=== PATIENT | male | born 1930 ===

== ENCOUNTER 2017-07-06 21:32 | Inpatient (IN) | payer MEDICARE, MEDICAID ==
[2017-07-06 22:29] LABS: BASO # 0.1 K/uL (0.0-0.2); EOS # 0.2 K/uL (0.0-0.7); EOS % 2.1 % (0.0-4.0); HEMOGLOBIN 14.3 g/dL (12.0-18.0); LYMPH # 1.5 K/uL (1.0-4.3); LYMPH % 18.1 % (20.0-40.0); MEAN CELL VOLUME 90.8 fl (80.0-94.0); MEAN CORPUSCULAR HEMOGLOBIN 29.9 pg (27.0-31.0); MEAN CORPUSCULAR HGB CONC 32.9 g/dL (33.0-37.0); MEAN PLATELET VOLUME 8.8 fl (7.2-11.7); MONO # 1.2 K/uL (0.0-0.8); MONO % 14.8 % (0.0-10.0); NEUT # 5.3 K/uL (1.8-7.0); NRBC % 0.1 % (0.0-0.0); RBC 4.8 Mil/uL (4.40-5.90); RED CELL DISTRIBUTION WIDTH 13.5 % (11.5-14.5); WHITE BLOOD COUNT 8.3 K/uL (4.8-10.8)
[2017-07-06 22:36] LABS: PARTIAL THROMBOPLASTIN TIME 29.5 Seconds (25.6-37.1); PROTHROMBIN TIME 11.5 Seconds (9.8-13.1)
[2017-07-06 22:40] LABS: ALBUMIN 3.4 g/dL (3.5-5.0); ALT/SGPT 67 U/L (21-72); AST/SGOT 47 U/L (17-59); BLOOD UREA NITROGEN 18 mg/dl (9-20); CALCIUM 8.3 mg/dL (8.4-10.2); GFR AFRICAN-AMERICAN > 60; GFR NON-AFRICAN AMERICAN > 60; LIPASE 50 U/L (23-300); MAGNESIUM 1.9 MG/DL (1.6-2.3)
[2017-07-06 22:54] LABS: VENOUS BLOOD GAS BASE EXCESS 0.3 mmol/L (0.0-2.0); VENOUS BLOOD GAS PCO2 48 mmHg (40-60); VENOUS BLOOD GAS PO2 54 mm/Hg (30-55); VENOUS BLOOD PH 7.35 (7.32-7.43)
[2017-07-06 22:54] LABS: ALB/GLOB RATIO 1.1 (1.0-2.1)
[2017-07-06] MEDS ORDERED: levoFLOXacin 750 mg in D5W 150 ML BAG IVPB STA (22:54)
[2017-07-06 23:05] LABS: URINE BILIRUBIN NEGATIVE (NEGATIVE); URINE BLOOD SMALL (NEGATIVE); URINE CLARITY CLEAR (Clear); URINE COLOR YELLOW (YELLOW); URINE GLUCOSE (UA) 50 mg/dL (Normal); URINE LEUKOCYTE ESTERASE NEG Leu/uL (Negative); URINE NITRATE NEGATIVE (NEGATIVE); URINE PROTEIN 30 mg/dL (NEGATIVE)
[2017-07-06] MEDS ORDERED: Piperacillin/Tazobact 3.375 GM in Sodium Chloride 0.9% 100 ML IVPB STA (23:25)
[2017-07-06] MEDS ORDERED: levoFLOXacin 750 mg in D5W 750 MG/150 ML BAG IVPB STA (23:28)
--- NOTE | 2017-07-06 23:43 | ED PDOC ---
HPI: General Adult Time Seen by Provider: 07/06/17 21:52 Chief Complaint (Nursing): Flu-like Symptoms Chief Complaint (Provider): Flu-Like Symptoms History Per: Other (correction) History/Exam Limitations: clinical condition (dementia) Additional Complaint(s): 87 year old brought in by EMS presents to [facility] for fever and cough and has a past medical history of HTN, hypercholesterolemia, DM (type II) , asthma, PNA, cerebrovascular accident, Parkinson's, dementia, and seizures. Patient is unable to provide history due to dementia. PCP: Jordan Kruse Past Medical History Reviewed: Historical Data, Nursing Documentation, Vital Signs Vital Signs: Last Vital Signs Temp 99.4 F 07/07/17 16:22 Pulse 85 07/07/17 16:22 Resp 20 07/07/17 16:22 BP 132/68 07/07/17 16:22 Pulse Ox 96 07/07/17 16:22 - Medical History PMH: Asthma, CAD, Dementia, Diabetes, HTN, Hypercholesterolemia, Osteoporosis, Parkinson's Disease, Pneumonia, Seizures Denies: Chronic Kidney Disease - Surgical History Surgical History: No Surg Hx - Family History Family History: States: Unknown Family Hx - Living Arrangements Living Arrangements: [facility] - Social History Current smoker - smoking cessation education provided: No Ex-Smoker (has not smoked in the last 12 months): No Alcohol: None Drugs: Denies - Home Medications Home Medications: Ambulatory Orders Medication Instructions Recorded Acetaminophen [Tylenol 325mg tab] 650 mg PO Q4 PRN 03/20/17 Atorvastatin [Lipitor] 80 mg PO HS 03/20/17 Bisacodyl [Dulcolax] 10 mg PO DAILY PRN 03/20/17 Calcium Carbonate/Vitamin D3 1 tab PO BID 03/20/17 [Os-Davy 500-Vit D3 200 Caplet] Carbidopa/Levodopa [Sinemet Cr 25 - 100 mg PO Q8 03/20/17 25-100 Tablet] Donepezil [Aricept] 5 mg PO DAILY 03/20/17 Famotidine [Pepcid] 20 mg PO BID 03/20/17 Insulin Detemir [Levemir] 10 units SC HS 03/20/17 Insulin Detemir [Levemir] 40 units SC AC 03/20/17 Lisinopril [Zestril] 10 mg PO DAILY 03/20/17 Magnesium Hydroxide [Milk Of 30 ml PO PRN PRN 03/20/17 Magnesia] Potassium Chloride [Klor-Con 10] 10 meq PO DAILY 03/20/17 Repaglinide [Prandin] 1 tab PO DAILY 03/20/17 amLODIPine [Norvasc] 10 mg PO DAILY 03/20/17 levETIRAcetam [Keppra] 500 mg PO Q12 03/20/17 Albuterol/Ipratropium [Duoneb 3 3 ml INH RQ4 neb 03/29/17 mg/0.5 mg (3 ml) UD] Furosemide [Lasix] 40 mg PO DAILY #30 udc 03/29/17 Albuterol/Ipratropium [Duoneb 3 See Protocol INH Q4 07/07/17 mg/0.5 mg (3 ml) UD] Guaifenesin [Mucinex] 600 mg PO BID 07/07/17 Insulin Aspart [Novolog FLEXPEN] 3 unit SC ACL 07/07/17 Insulin Aspart, Recombinant 5 units SQ ACBD 07/07/17 [Novolog] Promethazine [Phenergan Syrup] 10 ml PO Q4 PRN 07/07/17 - Allergies Allergies/Adverse Reactions: Allergies Allergy/AdvReac Type Severity Reaction Status Date / Time codeine Allergy RASH Verified 07/06/17 21:46 fish oil Allergy RASH Verified 07/06/17 21:46 shellfish derived Allergy RASH Verified 07/06/17 21:46 seafood Allergy RASH Uncoded 03/20/17 21:14 Review of Systems Review Of Systems: ROS cannot be obtained secondary to pt's inabilty to answer questions. (patient has dementia) Constitutional: Positive for: Fever Respiratory: Positive for: Cough Physical Exam - Reviewed Nursing Documentation Reviewed: Yes Vital Signs Reviewed: Yes - Physical Exam Appears: Positive for: In Acute Distress (febrile) Skin: Positive for: Warm, Dry Eye Exam: Positive for: EOMI, PERRL ENT: Positive for: Other (tacky mucus membranes) Neck: Positive for: Painless ROM, Supple Cardiovascular/Chest: Positive for: Regular Rate, Rhythm. Negative for: Murmur Respiratory: Positive for: Decreased Breath Sounds (bases bilaterally). Negative for: Wheezing Gastrointestinal/Abdominal: Positive for: Soft. Negative for: Tenderness Back: Positive for: Normal Inspection. Negative for: Vertebral Tenderness Extremity: Positive for: Other (cogwheel rigidity). Negative for: Deformity Lymphatic: Negative for: Adenopathy Neurologic/Psych: Positive for: Alert. Negative for: Oriented, Motor/Sensory Deficits - Laboratory Results Result Diagrams: 07/07/17 08:03 07/07/17 08:03 - ECG O2 Sat by Pulse Oximetry: 95 (RA) Pulse Ox Interpretation: Normal - Radiology X-Ray Interpretation: Infiltrates Medical Decision Making Medical Decision Makin Initial impression: febrile illness DDx: including but not limited to PNA, influenza, dehydration, UTI Initial plan: * T&S * VBG * EKG * Labs * Lipase * Magnesium * Phosphorus * Trop I * PTT/PT * CXR * Levaquin 750mg in 150mL IVPB * Oseltamivir 75mg PO * Acetaminophen 975mg PO * Vancomycin 1000mg IVPB * Piperacillin 3.375gm IVPB * BCx * UCx * Influenza A B * UA * Re-eval LLL infiltrate on CXR DW Dr Kruse for hospitalization Scribe Attestation: Documented by Wanda Lomas acting as a scribe for Sherry Painter MD. Scribe Attestation: All medical record entries made by the Scribe were at my direction and personally dictated by me. I have reviewed the chart and agree that the record accurately reflects my personal performance of the history, physical exam, medical decision making, and the department course for this patient. I have also personally directed, reviewed, and agree with the discharge instructions and disposition. Disposition - Clinical Impression Clinical Impression: Pneumonia - Disposition Disposition Time: 23:20 Condition: FAIR - Pt Status Changed To: Hospital Disposition Of: Inpatient - Admit Certification Admit to Inpatient:: After my assessment, the patient will require hospitalization for at least two midnights. This is because of the severity of symptoms shown, intensity of services needed, and/or the medical risk in this patient being treated as an outpatient. - POA Present On Arrival: None
[2017-07-07] MEDS ORDERED: Magnesium Hydroxide Susp 30 ml UD PO PRN (02:39)
[2017-07-07] MEDS ORDERED: Promethazine 6.25 MG/5 ML CUP PO PRN (02:39)
[2017-07-07] MEDS ORDERED: Albuterol-Ipratrop 3 mg / 0.5 (3 ml) UD INH PRN (02:39)
[2017-07-07] MEDS: Piperacillin/Tazobact 3.375 GM in Sodium Chloride 0.9% 100 ML IVPB SCH ×4 (05:16→23:13)
[2017-07-07] MEDS: Albuterol-Ipratrop 3 mg / 0.5 (3 ml) UD INH SCH ×6 (06:16→23:37)
[2017-07-07] MEDS ORDERED: Patient's Own Med (Insulin Detemir [Levemir] 40 units) SC SCH (07:30)
[2017-07-07 08:24] LABS: HEMOGLOBIN 13.9 g/dL (12.0-18.0); MEAN CELL VOLUME 91.4 fl (80.0-94.0); MEAN CORPUSCULAR HEMOGLOBIN 30.3 pg (27.0-31.0); MEAN CORPUSCULAR HGB CONC 33.1 g/dL (33.0-37.0); RBC 4.6 Mil/uL (4.40-5.90); RED CELL DISTRIBUTION WIDTH 13.6 % (11.5-14.5); WHITE BLOOD COUNT 7.9 K/uL (4.8-10.8)
[2017-07-07] MEDS: Promethazine 12.5 mg/10 ml Syrup PO PRN (08:34)
[2017-07-07] MEDS: Carbidopa/Levodopa 25/100 CR PO SCH ×2 (08:35→16:55)
[2017-07-07] MEDS: guaiFENesin 600 mg ER Tab PO SCH ×2 (08:36→16:55)
[2017-07-07 08:37] LABS: ALT/SGPT 71 U/L (21-72); AST/SGOT 59 U/L (17-59); BLOOD UREA NITROGEN 15 mg/dl (9-20); CALCIUM 7.7 mg/dL (8.4-10.2); GFR AFRICAN-AMERICAN > 60; GFR NON-AFRICAN AMERICAN > 60; HDL CHOLESTEROL 19 MG/DL (30-70)
[2017-07-07 08:49] LABS: LDL CHOLESTEROL < 30 mg/dL (0-129)
[2017-07-07] MEDS: Insulin Lispro (humaLOG) 100 Units/ml Inj SC SCH ×6 (08:50→21:59)
[2017-07-07] MEDS: Insulin Detemir 100 Units/ml Inj SC SCH ×2 (08:51→21:58)
[2017-07-07 08:53] LABS: T4 7.82 ug/dl (5.5-11.0)
[2017-07-07] MEDS ORDERED: Potassium Chloride 10 mEq ER Tab PO SCH (09:00)
[2017-07-07] MEDS ORDERED: levoFLOXacin 750 mg in D5W 150 ML BAG IVPB SCH (09:00)
--- NOTE | 2017-07-07 09:36 | RAD ---
HISTORY: fever cough weakness COMPARISON: Chest radiograph dated 03/28/2017. FINDINGS: LUNGS: New left lower lobe infiltrate. Resolution of right upper lobe airspace disease. PLEURA: No significant pleural effusion identified, no pneumothorax apparent. CARDIOVASCULAR: Atherosclerotic aortic calcifications. Cardiomediastinal silhouette unchanged. OSSEOUS STRUCTURES: Unchanged. VISUALIZED UPPER ABDOMEN: Normal. OTHER FINDINGS: None. IMPRESSION: Left lower lobe infiltrate.
[2017-07-07] MEDS: Calcium-Vit D 500 mg-200 Units Tab UD PO SCH ×2 (10:52→17:52)
--- NOTE | 2017-07-07 13:04 | CARD ---
APPROVED REPORT EKG Measurement Heart [id number] MI [id number] <Conclusion> Normal sinus rhythm Left bundle branch block Abnormal ECG
--- NOTE | 2017-07-07 13:30 | CP.PCM.HP ---
History of Present Illness - History of Present Illness History of Present Illness: CC Fever cough Patient is [place] resident having Fever and Cough , patient was seen ER [facility] CXR LLL Infiltrate, [place] was AD. Patient with Dementia , confused, poor historian Present on Admission - Present on Admission Any Indicators Present on Admission: No Past Patient History - Past Medical History & Family History Past Medical History?: Yes - Past Social History Smoking Status: Unknown If Ever Smoked - CARDIAC Hx Cardiac Disorders: Yes Hx Hypercholesterolemia: Yes Hx Hypertension: Yes Hx Peripheral Edema: Yes - PULMONARY Hx Respiratory Disorders: Yes Hx Asthma: Yes Hx Pneumonia: Yes - NEUROLOGICAL Hx Neurological Disorder: Yes HX Cerebrovascular Accident: Yes Hx Parkinson's Disease: Yes Hx Seizures: Yes - HEENT Hx HEENT Problems: Yes Hx Difficulty Chewing: Yes (dysphagia) - RENAL Hx Chronic Kidney Disease: No - ENDOCRINE/METABOLIC Hx Endocrine Disorders: Yes Hx Diabetes Mellitus Type 2: Yes - HEMATOLOGICAL/ONCOLOGICAL Hx Blood Disorders: No Hx AIDS: No Hx Human Immunodeficiency Virus (HIV): No - INTEGUMENTARY Hx Dermatological Problems: No - MUSCULOSKELETAL/RHEUMATOLOGICAL Hx Musculoskeletal Disorders: Yes Hx Falls: Yes Hx Unsteady Gait: Yes - GASTROINTESTINAL Hx Gastrointestinal Disorders: No - GENITOURINARY/GYNECOLOGICAL Hx Genitourinary Disorders: Yes Hx Incontinence: Yes - PSYCHIATRIC Hx Psychophysiologic Disorder: No Hx Substance Use: No - SURGICAL HISTORY Hx Surgeries: No - ANESTHESIA Hx Anesthesia: No Meds Home Medications: Home Medication List Medication Instructions Recorded Confirmed Type Azithromycin [Zithromax] 500 mg PO DAILY #3 tab 07/11/17 Rx Methylprednisolone [Medrol Dose 4 mg PO DAILY #21 mg 07/11/17 Rx Pack (21 tabs)] Allergies/Adverse Reactions: Allergies Allergy/AdvReac Type Severity Reaction Status Date / Time codeine Allergy RASH Verified 07/06/17 21:46 fish oil Allergy RASH Verified 07/06/17 21:46 shellfish derived Allergy RASH Verified 07/06/17 21:46 seafood Allergy RASH Uncoded 03/20/17 21:14 Physical Exam - Constitutional Appears: Chronically Ill - Head Exam Head Exam: NORMAL INSPECTION - Eye Exam Eye Exam: PERRL - ENT Exam ENT Exam: Normal Exam - Neck Exam Neck exam: Positive for: Normal Inspection - Respiratory Exam Respiratory Exam: Decreased Breath Sounds (at bases), Rhonchi (scattered) - Cardiovascular Exam Cardiovascular Exam: REGULAR RHYTHM - GI/Abdominal Exam GI & Abdominal Exam: Normal Bowel Sounds, Soft - Extremities Exam Extremities exam: Positive for: normal inspection - Back Exam Back exam: NORMAL INSPECTION - Neurological Exam Additional comments: confused, not following commands , generalized weakness, mild R side hemiparesia - Psychiatric Exam Additional comments: confused - Skin Skin Exam: Warm Results - Vital Signs Recent Vital Signs: Last Vital Signs Temp 98.3 F 07/07/17 08:19 Pulse 81 07/07/17 08:38 Resp 18 07/07/17 08:19 BP 136/61 07/07/17 08:38 Pulse Ox 96 07/07/17 08:19 - Labs Result Diagrams: 07/11/17 05:40 07/11/17 05:40 Labs: Laboratory Results - last 24 hr 07/06/17 07/06/17 07/06/17 22:14 22:20 22:20 WBC 8.3 RBC 4.80 Hgb 14.3 Hct 43.6 MCV 90.8 MCH 29.9 MCHC 32.9 L RDW 13.5 Plt Count 187 MPV 8.8 Neut % (Auto) 64.0 Lymph % (Auto) 18.1 L [place] % (Auto) 14.8 H Eos % (Auto) 2.1 Baso % (Auto) 1.0 Neut # 5.3 Lymph # 1.5 [place] # 1.2 H Eos # 0.2 Baso # 0.1 PT INR APTT pO2 VBG pH VBG pCO2 VBG HCO3 VBG Total CO2 VBG O2 Sat (Calc) VBG Base Excess VBG Potassium Glucose Lactate FiO2 Sodium 141 Potassium 4.1 Chloride 106 Carbon Dioxide 25 Anion Gap 14 BUN 18 Creatinine 0.9 Est GFR ( Amer) > 60 Est GFR (Non-Af Amer) > 60 POC Glucose (mg/dL) Random Glucose 183 H Calcium 8.3 L Phosphorus 2.0 L Magnesium 1.9 Total Bilirubin 0.7 AST 47 ALT 67 Alkaline Phosphatase 131 H D Troponin I 0.0220 Total Protein 6.3 Albumin 3.4 L Globulin 3.0 Albumin/Globulin Ratio 1.1 Triglycerides Cholesterol LDL Cholesterol Direct HDL Cholesterol Lipase 50 Thyroxine (T4) TSH 3rd Generation Venous Blood Potassium Urine Color Urine Clarity Urine pH Ur Specific [place] Urine Protein Urine Glucose (UA) Urine Ketones Urine Blood Urine Nitrate Urine Bilirubin Urine Urobilinogen Ur Leukocyte Esterase Urine RBC (Auto) Urine Microscopic WBC Influenza Typ A,B (EIA) Blood Type O POSITIVE Antibody Screen Negative BBK History Checked Patient has bt 07/06/17 07/06/17 07/06/17 22:20 22:40 22:58 WBC RBC Hgb Hct MCV MCH MCHC RDW Plt Count MPV Neut % (Auto) Lymph % (Auto) [place] % (Auto) Eos % (Auto) Baso % (Auto) Neut # Lymph # [place] # Eos # Baso # PT 11.5 INR 1.0 APTT 29.5 pO2 54 VBG pH 7.35 VBG pCO2 48 VBG HCO3 24.9 VBG Total CO2 28.0 VBG O2 Sat (Calc) 93.2 H VBG Base Excess 0.3 VBG Potassium 4.0 Glucose 173 H Lactate 1.8 FiO2 21.0 Sodium 137.0 Potassium Chloride 107.0 Carbon Dioxide Anion Gap BUN Creatinine Est GFR ( Amer) Est GFR (Non-Af Amer) POC Glucose (mg/dL) Random Glucose Calcium Phosphorus Magnesium Total Bilirubin AST ALT Alkaline Phosphatase Troponin I Total Protein Albumin Globulin Albumin/Globulin Ratio Triglycerides Cholesterol LDL Cholesterol Direct HDL Cholesterol Lipase Thyroxine (T4) TSH 3rd Generation Venous Blood Potassium 4.0 Urine Color Urine Clarity Urine pH Ur Specific [place] Urine Protein Urine Glucose (UA) Urine Ketones Urine Blood Urine Nitrate Urine Bilirubin Urine Urobilinogen Ur Leukocyte Esterase Urine RBC (Auto) Urine Microscopic WBC Influenza Typ A,B (EIA) Negative for flu a/b Blood Type Antibody Screen BBK History Checked 07/06/17 07/07/17 07/07/17 22:58 06:15 08:03 WBC 7.9 RBC 4.60 Hgb 13.9 Hct 42.1 MCV 91.4 MCH 30.3 MCHC 33.1 RDW 13.6 Plt Count 158 MPV Neut % (Auto) Lymph % (Auto) [place] % (Auto) Eos % (Auto) Baso % (Auto) Neut # Lymph # [place] # Eos # Baso # PT INR APTT pO2 VBG pH VBG pCO2 VBG HCO3 VBG Total CO2 VBG O2 Sat (Calc) VBG Base Excess VBG Potassium Glucose Lactate FiO2 Sodium Potassium Chloride Carbon Dioxide Anion Gap BUN Creatinine Est GFR ( Amer) Est GFR (Non-Af Amer) POC Glucose (mg/dL) 186 H Random Glucose Calcium Phosphorus Magnesium Total Bilirubin AST ALT Alkaline Phosphatase Troponin I Total Protein Albumin Globulin Albumin/Globulin Ratio Triglycerides Cholesterol LDL Cholesterol Direct HDL Cholesterol Lipase Thyroxine (T4) TSH 3rd Generation Venous Blood Potassium Urine Color Yellow Urine Clarity Clear Urine pH 5.0 Ur Specific [place] 1.023 Urine Protein 30 Urine Glucose (UA) 50 Urine Ketones Negative Urine Blood Small Urine Nitrate Negative Urine Bilirubin Negative Urine Urobilinogen 4.0 Ur Leukocyte Esterase Neg Urine RBC (Auto) 7 H Urine Microscopic WBC < 1 Influenza Typ A,B (EIA) Blood Type Antibody Screen BBK History Checked 07/07/17 07/07/17 08:03 11:27 WBC RBC Hgb Hct MCV MCH MCHC RDW Plt Count MPV Neut % (Auto) Lymph % (Auto) [place] % (Auto) Eos % (Auto) Baso % (Auto) Neut # Lymph # [place] # Eos # Baso # PT INR APTT pO2 VBG pH VBG pCO2 VBG HCO3 VBG Total CO2 VBG O2 Sat (Calc) VBG Base Excess VBG Potassium Glucose Lactate FiO2 Sodium 142 Potassium 4.1 Chloride 107 Carbon Dioxide 26 Anion Gap 13 BUN 15 Creatinine 0.9 Est GFR ( Amer) > 60 Est GFR (Non-Af Amer) > 60 POC Glucose (mg/dL) 244 H Random Glucose 207 H Calcium 7.7 L Phosphorus Magnesium Total Bilirubin 0.6 AST 59 D ALT 71 Alkaline Phosphatase 130 H Troponin I Total Protein 5.9 L Albumin 3.0 L Globulin 2.9 Albumin/Globulin Ratio 1.0 Triglycerides 62 D Cholesterol 66 LDL Cholesterol Direct < 30 HDL Cholesterol 19 L Lipase Thyroxine (T4) 7.82 TSH 3rd Generation 2.07 Venous Blood Potassium Urine Color Urine Clarity Urine pH Ur Specific [place] Urine Protein Urine Glucose (UA) Urine Ketones Urine Blood Urine Nitrate Urine Bilirubin Urine Urobilinogen Ur Leukocyte Esterase Urine RBC (Auto) Urine Microscopic WBC Influenza Typ A,B (EIA) Blood Type Antibody Screen BBK History Checked Assessment & Plan (1) HCAP (healthcare-associated pneumonia) Status: Acute (2) COPD exacerbation Status: Acute (3) Dementia Status: Acute (4) Parkinson disease Status: Acute (5) Seizure Status: Acute (6) History of CVA (cerebrovascular accident) Status: Acute (7) HTN (hypertension) Status: Acute - Assessment and Plan (Free Text) Plan: Zithromax , Zosyn , Vanco , DuoNeb and rest of treatment ,f/u Blood and Urine C-S - Date & Time Date: 07/07/17 Time: 13:20
[2017-07-07] MEDS ORDERED: Influenza Vaccine 18yr & older 0.5 ML/45 MCG SYR IM ONE (19:34)
[2017-07-07] MEDS: levETIRAcetam 100 mg/ml (5ml) Oral Syringe PO SCH (21:41)
[2017-07-07] MEDS ORDERED: levoFLOXacin 750 mg in D5W 750 MG/150 ML BAG IVPB SCH (23:00)
[2017-07-08] MEDS: Carbidopa/Levodopa 25/100 CR PO SCH ×3 (00:21→16:29)
[2017-07-08] MEDS: Promethazine 12.5 mg/10 ml Syrup PO PRN (00:22)
[2017-07-08] MEDS: Piperacillin/Tazobact 3.375 GM in Sodium Chloride 0.9% 100 ML IVPB SCH ×4 (03:14→21:54)
[2017-07-08] MEDS: Albuterol-Ipratrop 3 mg / 0.5 (3 ml) UD INH SCH ×6 (03:37→23:38)
[2017-07-08] MEDS: Insulin Detemir 100 Units/ml Inj SC SCH ×2 (06:58→21:47)
[2017-07-08] MEDS: Insulin Lispro (humaLOG) 100 Units/ml Inj SC SCH ×7 (06:59→21:48)
[2017-07-08] MEDS: Potassium Chloride 20 mEq/15 ml LIQ UD PO SCH (08:39)
[2017-07-08] MEDS: guaiFENesin 600 mg ER Tab PO SCH ×2 (08:39→16:31)
[2017-07-08] MEDS: levETIRAcetam 100 mg/ml (5ml) Oral Syringe PO SCH (08:40)
[2017-07-08] MEDS: Calcium-Vit D 500 mg-200 Units Tab UD PO SCH ×2 (08:43→16:29)
--- NOTE | 2017-07-08 12:10 | CP.PCM.PN ---
Subjective - Date & Time of Evaluation Date of Evaluation: 07/08/17 Time of Evaluation: 11:20 - Subjective Subjective: F/U Fever and Cough No AD , confused Objective - Vital Signs/Intake and Output Vital Signs (last 24 hours): Temp Pulse Resp BP Pulse Ox 100.5 F H 94 H 20 132/66 97 07/08/17 08:58 07/08/17 08:20 07/08/17 08:20 07/08/17 08:47 07/08/17 08:20 - Medications Medications: Current Medications Acetaminophen (Tylenol 325mg Tab) 650 mg PO Q4 PRN PRN Reason: Fever >100.4 F Last Admin: 07/08/17 08:58 Dose: 650 mg Albuterol/Ipratropium (Duoneb 3 Mg/0.5 Mg (3 Ml) Ud) 3 ml INH RQ4 [facility] Last Admin: 07/08/17 11:15 Dose: 3 ml Albuterol/Ipratropium (Duoneb 3 Mg/0.5 Mg (3 Ml) Ud) 3 ml INH Q4 PRN PRN Reason: Shortness of Breath Amlodipine Besylate (Norvasc) 10 mg PO DAILY [facility] Last Admin: 07/08/17 08:41 Dose: 10 mg Atorvastatin Calcium (Lipitor) 80 mg PO HS [facility] Last Admin: 07/07/17 21:42 Dose: 80 mg Bisacodyl (Dulcolax) 10 mg [place] DAILY PRN PRN Reason: Constipation Calcium/Vitamin D (Oyster Shell Calcium/Vitamin D 500 Mg-200 Iu) 1 tab PO BID [facility] Last Admin: 07/08/17 08:43 Dose: 1 tab Carbidopa/Levodopa (Sinemet Cr) 1 tab PO Q8 [facility] Last Admin: 07/08/17 08:49 Dose: 1 tab Donepezil HCl (Aricept) 5 mg PO DAILY [facility] Last Admin: 07/08/17 08:41 Dose: 5 mg Famotidine (Pepcid) 20 mg PO BID [facility] Last Admin: 07/08/17 08:46 Dose: 20 mg Furosemide (Lasix) 40 mg PO DAILY [facility] Last Admin: 07/08/17 08:47 Dose: 40 mg Guaifenesin (Mucinex La) 600 mg PO BID [facility] Last Admin: 07/08/17 08:39 Dose: 600 mg Vancomycin HCl 1 gm/ Sodium (Chloride) 250 mls @ 166.667 mls/hr IVPB Q12 TARYN PRN Reason: Protocol Last Admin: 07/08/17 08:37 Dose: 166.667 mls/hr Piperacillin Sod/Tazobactam (Sod 3.375 gm/ Sodium Chloride) 100 mls @ 100 mls/ hr IVPB Q6 TARYN PRN Reason: Protocol Last Admin: 07/08/17 09:21 Dose: 100 mls/hr Azithromycin 500 mg/ Sodium (Chloride) 250 mls @ 250 mls/hr IVPB DAILY [facility] PRN Reason: Protocol Stop: 07/13/17 23:59 Insulin Detemir (Levemir) 10 units SC HS [facility] Last Admin: 07/07/17 21:58 Dose: 10 u Insulin Detemir (Levemir) 40 units SC ACB [facility] Last Admin: 07/08/17 06:58 Dose: 40 units Insulin Human Lispro (Humalog) 5 units SC ACBD [facility] Last Admin: 07/08/17 06:59 Dose: 5 units Insulin Human Lispro (Humalog) 3 units SC ACL [facility] Last Admin: 07/08/17 11:59 Dose: 3 units Insulin Human Lispro (Humalog) 0 units SC ACHS [facility] PRN Reason: Protocol Last Admin: 07/08/17 12:00 Dose: 2 units Levetiracetam (Keppra) 500 mg PO BID [facility] Last Admin: 07/08/17 08:40 Dose: 500 mg Lisinopril (Zestril) 10 mg PO DAILY [facility] Last Admin: 07/08/17 08:46 Dose: 10 mg Magnesium Hydroxide (Milk Of Magnesia) 30 ml PO PRN PRN PRN Reason: Constipation Potassium Chloride (Potassium Chloride Oral Soln) 10 meq PO DAILY [facility] Last Admin: 07/08/17 08:39 Dose: 10 meq Promethazine HCl (Phenergan Syrup) 12.5 mg PO Q4 PRN PRN Reason: Cough Last Admin: 07/08/17 00:22 Dose: 12.5 mg - Labs Labs: 07/07/17 08:03 07/07/17 08:03 PT 11.5 Seconds (9.8-13.1) 07/06/17 22:20 INR 1.0 (0.9-1.2) 07/06/17 22:20 APTT 29.5 Seconds (25.6-37.1) 07/06/17 22:20 - Constitutional Appears: No Acute Distress, Chronically Ill - Head Exam Head Exam: NORMAL INSPECTION - Eye Exam Eye Exam: PERRL - ENT Exam ENT Exam: Normal Exam - Neck Exam Neck Exam: Normal Inspection - Respiratory Exam Respiratory Exam: Decreased Breath Sounds (at bases), Rhonchi (scattered at bases) - Cardiovascular Exam Cardiovascular Exam: REGULAR RHYTHM - GI/Abdominal Exam GI & Abdominal Exam: Soft, Normal Bowel Sounds - Back Exam Back Exam: NORMAL INSPECTION - Neurological Exam Additional comments: confused , generalized weakness, mild R side hemiparesia. - Psychiatric Exam Additional comments: confused - Skin Skin Exam: Warm Assessment and Plan (1) HCAP (healthcare-associated pneumonia) Status: Acute (2) COPD exacerbation Status: Acute (3) Dementia Status: Acute (4) History of CVA (cerebrovascular accident) Status: Acute (5) Parkinson disease Status: Acute (6) Seizure Status: Acute (7) DM (diabetes mellitus), type 2, uncontrolled Status: Acute (8) HTN (hypertension) Status: Acute - Assessment and Plan (Free Text) Plan: continue Zithromax , Vanco , Zosyn , DuoNeb and rest of treatment
[2017-07-08] MEDS: Azithromycin 500 MG in Sodium Chloride 0.9% 250 ML IVPB SCH (13:40)
[2017-07-08 16:03] VITALS: BMI 26.3
[2017-07-09] MEDS: Carbidopa/Levodopa 25/100 CR PO SCH ×3 (00:51→18:00)
[2017-07-09] MEDS: Piperacillin/Tazobact 3.375 GM in Sodium Chloride 0.9% 100 ML IVPB SCH ×4 (04:27→22:37)
[2017-07-09] MEDS: Albuterol-Ipratrop 3 mg / 0.5 (3 ml) UD INH SCH ×5 (04:55→19:27)
[2017-07-09] MEDS: Insulin Lispro (humaLOG) 100 Units/ml Inj SC SCH ×7 (06:48→21:54)
[2017-07-09] MEDS: Insulin Detemir 100 Units/ml Inj SC SCH ×2 (06:48→21:54)
[2017-07-09] MEDS: levETIRAcetam 100 mg/ml (5ml) Oral Syringe PO SCH ×2 (09:29→17:59)
[2017-07-09] MEDS: Calcium-Vit D 500 mg-200 Units Tab UD PO SCH ×2 (09:32→18:02)
[2017-07-09] MEDS: guaiFENesin 600 mg ER Tab PO SCH ×2 (09:32→18:00)
[2017-07-09] MEDS: Potassium Chloride 20 mEq/15 ml LIQ UD PO SCH (09:33)
[2017-07-09] MEDS: Azithromycin 500 MG in Sodium Chloride 0.9% 250 ML IVPB SCH (09:36)
[2017-07-09 10:47] LABS: BASO # 0.1 K/uL (0.0-0.2); BASO % 0.6 % (0.0-2.0); EOS # 0.5 K/uL (0.0-0.7); EOS % 5.2 % (0.0-4.0); HEMOGLOBIN 13.5 g/dL (12.0-18.0); LYMPH # 1.6 K/uL (1.0-4.3); LYMPH % 18.5 % (20.0-40.0); MEAN CELL VOLUME 89.6 fl (80.0-94.0); MEAN CORPUSCULAR HEMOGLOBIN 30.3 pg (27.0-31.0); MEAN CORPUSCULAR HGB CONC 33.8 g/dL (33.0-37.0); MEAN PLATELET VOLUME 9.5 fl (7.2-11.7); MONO # 1.2 K/uL (0.0-0.8); NEUT # 5.6 K/uL (1.8-7.0); NEUT % 62.7 % (50.0-75.0); NRBC % 0.1 % (0.0-0.0); RBC 4.44 Mil/uL (4.40-5.90); RED CELL DISTRIBUTION WIDTH 13.5 % (11.5-14.5); WHITE BLOOD COUNT 8.9 K/uL (4.8-10.8)
[2017-07-09 11:00] LABS: ALBUMIN 2.8 g/dL (3.5-5.0); ALT/SGPT 35 U/L (21-72); AST/SGOT 35 U/L (17-59); BLOOD UREA NITROGEN 7 mg/dl (9-20); CALCIUM 8.3 mg/dL (8.4-10.2); GFR AFRICAN-AMERICAN > 60; GFR NON-AFRICAN AMERICAN > 60
--- NOTE | 2017-07-09 11:56 | IP.NPCORE ---
Pneumonia Progress Notes - Oxygenation Assessment (REQUIRED) Documented 02: Yes O2 Saturation: 100 Oxygen Delivery Method: Nasal Cannula
[2017-07-09] MEDS ORDERED: Dextrose 50% SYRINGE Inj (50 ml) IV PRN (16:27)
[2017-07-09] MEDS ORDERED: Glucagon Recombinant 1 mg Inj IM PRN (16:27)
--- NOTE | 2017-07-09 17:56 | CP.PCM.PN ---
Subjective - Date & Time of Evaluation Date of Evaluation: 07/09/17 Time of Evaluation: 09:30 - Subjective Subjective: F/U HCAP Awake, confused. Objective - Vital Signs/Intake and Output Vital Signs (last 24 hours): Temp Pulse Resp BP Pulse Ox 97.5 F L 84 20 124/51 L 95 07/09/17 16:02 07/09/17 16:02 07/09/17 16:02 07/09/17 16:02 07/09/17 16:02 - Medications Medications: Current Medications Acetaminophen (Tylenol 325mg Tab) 650 mg PO Q4 PRN PRN Reason: Fever >100.4 F Last Admin: 07/08/17 08:58 Dose: 650 mg Albuterol/Ipratropium (Duoneb 3 Mg/0.5 Mg (3 Ml) Ud) 3 ml INH RQ4 [facility] Last Admin: 07/09/17 15:07 Dose: 3 ml Albuterol/Ipratropium (Duoneb 3 Mg/0.5 Mg (3 Ml) Ud) 3 ml INH Q4 PRN PRN Reason: Shortness of Breath Amlodipine Besylate (Norvasc) 10 mg PO DAILY [facility] Last Admin: 07/09/17 09:32 Dose: 10 mg Atorvastatin Calcium (Lipitor) 80 mg PO HS [facility] Last Admin: 07/08/17 21:46 Dose: 80 mg Bisacodyl (Dulcolax) 10 mg [place] DAILY PRN PRN Reason: Constipation Calcium/Vitamin D (Oyster Shell Calcium/Vitamin D 500 Mg-200 Iu) 1 tab PO BID [facility] Last Admin: 07/09/17 09:32 Dose: 1 tab Carbidopa/Levodopa (Sinemet Cr) 1 tab PO Q8 [facility] Last Admin: 07/09/17 09:33 Dose: 1 tab Dextrose (Dextrose 50% Inj) 0 ml IV STAT PRN; Protocol PRN Reason: Hypoglycemia Protocol Dextrose (Glutose 15) 0 gm PO ONCE PRN; Protocol PRN Reason: Hypoglycemia Protocol Donepezil HCl (Aricept) 5 mg PO DAILY [facility] Last Admin: 07/09/17 09:29 Dose: 5 mg Famotidine (Pepcid) 20 mg PO BID [facility] Last Admin: 07/09/17 09:32 Dose: 20 mg Furosemide (Lasix) 40 mg PO DAILY [facility] Last Admin: 07/09/17 09:29 Dose: 40 mg Glucagon (Glucagen Diagnostic Kit) 0 mg IM STAT PRN; Protocol PRN Reason: Hypoglycemia Protocol Guaifenesin (Mucinex La) 600 mg PO BID [facility] Last Admin: 07/09/17 09:32 Dose: 600 mg Vancomycin HCl 1 gm/ Sodium (Chloride) 250 mls @ 166.667 mls/hr IVPB Q12 [facility] PRN Reason: Protocol Last Admin: 07/09/17 09:38 Dose: 166.667 mls/hr Piperacillin Sod/Tazobactam (Sod 3.375 gm/ Sodium Chloride) 100 mls @ 100 mls/ hr IVPB Q6 [facility] PRN Reason: Protocol Last Admin: 07/09/17 09:36 Dose: 100 mls/hr Azithromycin 500 mg/ Sodium (Chloride) 250 mls @ 250 mls/hr IVPB DAILY [facility] PRN Reason: Protocol Stop: 07/13/17 23:59 Last Admin: 07/09/17 09:36 Dose: 250 mls/hr Insulin Detemir (Levemir) 10 units SC HS [facility] Last Admin: 07/08/17 21:47 Dose: 10 u Insulin Detemir (Levemir) 30 units SC DAILY [facility] Insulin Human Lispro (Humalog) 0 units SC ACHS [facility] PRN Reason: Protocol Last Admin: 07/09/17 13:00 Dose: Not Given Insulin Human Lispro (Humalog) 3 units SC AC [facility] Levetiracetam (Keppra) 500 mg PO BID [facility] Last Admin: 07/09/17 09:29 Dose: 500 mg Lisinopril (Zestril) 10 mg PO DAILY [facility] Last Admin: 07/09/17 09:33 Dose: 10 mg Magnesium Hydroxide (Milk Of Magnesia) 30 ml PO PRN PRN PRN Reason: Constipation Potassium Chloride (Potassium Chloride Oral Soln) 10 meq PO DAILY [facility] Last Admin: 07/09/17 09:33 Dose: 10 meq Promethazine HCl (Phenergan Syrup) 12.5 mg PO Q4 PRN PRN Reason: Cough Last Admin: 07/08/17 00:22 Dose: 12.5 mg - Labs Labs: 07/09/17 10:38 07/09/17 10:38 PT 11.5 Seconds (9.8-13.1) 07/06/17 22:20 INR 1.0 (0.9-1.2) 07/06/17 22:20 APTT 29.5 Seconds (25.6-37.1) 07/06/17 22:20 - Constitutional Appears: Chronically Ill - Head Exam Head Exam: NORMAL INSPECTION - Eye Exam Eye Exam: PERRL - ENT Exam ENT Exam: Normal Exam - Neck Exam Neck Exam: Normal Inspection - Respiratory Exam Respiratory Exam: Decreased Breath Sounds (at bases), Rhonchi (scattered) - Cardiovascular Exam Cardiovascular Exam: REGULAR RHYTHM - GI/Abdominal Exam GI & Abdominal Exam: Soft, Normal Bowel Sounds - Extremities Exam Extremities Exam: Normal Inspection - Back Exam Back Exam: NORMAL INSPECTION - Neurological Exam Neurological Exam: Awake Additional comments: Confused, not following commands, generalized weakness, mild R side hemiparesia. - Skin Skin Exam: Warm Assessment and Plan (1) HCAP (healthcare-associated pneumonia) Status: Acute (2) COPD exacerbation Status: Acute (3) Dementia Status: Acute (4) History of CVA (cerebrovascular accident) Status: Acute (5) Parkinson disease Status: Acute (6) Seizure Status: Acute (7) DM (diabetes mellitus), type 2, uncontrolled Status: Acute (8) HTN (hypertension) Status: Acute - Assessment and Plan (Free Text) Plan: Continue Zithromax, Zosyn, Vanco, Duoneb and rest of Tx.
[2017-07-10] MEDS: Albuterol-Ipratrop 3 mg / 0.5 (3 ml) UD INH SCH ×6 (00:17→19:21)
[2017-07-10] MEDS: Carbidopa/Levodopa 25/100 CR PO SCH ×3 (01:26→16:16)
[2017-07-10] MEDS: Piperacillin/Tazobact 3.375 GM in Sodium Chloride 0.9% 100 ML IVPB SCH ×4 (04:18→22:49)
[2017-07-10] MEDS: Insulin Lispro (humaLOG) 100 Units/ml Inj SC SCH ×7 (09:10→21:41)
[2017-07-10] MEDS: levETIRAcetam 100 mg/ml (5ml) Oral Syringe PO SCH ×2 (09:11→16:15)
[2017-07-10] MEDS: guaiFENesin 600 mg ER Tab PO SCH ×2 (09:12→16:15)
[2017-07-10] MEDS: Insulin Detemir 100 Units/ml Inj SC SCH ×3 (09:12→21:43)
[2017-07-10] MEDS: Calcium-Vit D 500 mg-200 Units Tab UD PO SCH ×2 (09:13→16:16)
[2017-07-10] MEDS: Potassium Chloride 20 mEq/15 ml LIQ UD PO SCH (09:13)
[2017-07-10] MEDS: Azithromycin 500 MG in Sodium Chloride 0.9% 250 ML IVPB SCH (09:18)
--- NOTE | 2017-07-10 10:32 | PQF GENQUE ---
This form is a permanent part of the medical record 07/10/17 Dr. Kruse, Note: CAP, HAP, and HCAP indicate where the pneumonia was acquired, not a specific type. Please specify the type or suspected type of pneumonia in the progress notes after workup. snf resident with dementia presents with fever and cough. CXR: LLL Infiltrate. WBC 8.3. Temp max 100.5. Tolerating diet. M. Pneumoniae pending. Diagnosed with HCAP and COPD exacerbation. Treated with triple IVAB, Nebulizer treatments. Clarification of your documentation is requested to better reflect the severity of illness and intensity of treatment of your patient. Indicators present [] Specify: [] [] Specify: [] [] Specify: [] [] Specify: [] Location in the medical record that reflects the above clinical findings: [] Treatment Provided: [] PHYSICIAN'S RESPONSE Please specify type of pneumonia in the progress notes: [] Aspiration pneumonia [] Bacterial (specify organism) [] Bronchopneumonia (specify organism) [] Interstitial pneumonia [] Organizing pneumonia/BOOP [] Pneumonia with influenza, [place] flu, or H1N1 flu [] RSV pneumonia [] Tuberculosis, pulmonary [] Viral pneumonia [] Other pneumonia (specify organism or type) [] Clinically unable to determine [] Unknown Based on your medical judgment of the clinical indicators outlined above please clarify the following: [] Practitioner response [] If unable to determine, please check the box, sign and date. Present On Admission (POA) Indicator: [] Present at the time of admission [] Not present at the time of admission [] Clinically Undetermined In responding to this query, please exercise your independent professional judgment. The fact that a question is asked does not imply that any particular answer is desired or expected. Thank you for your clarification on this documentation. If you have any questions please call:ext [phone] * Thank you, Kerri Gutierrez RN [facility]
[2017-07-10] MEDS ORDERED: methylPREDNISolone 40 MG in Sodium Chloride 0.9% 50 ML IVPB SCH (12:30)
--- NOTE | 2017-07-10 15:26 | CT ---
PROCEDURE: CT Chest without contrast HISTORY: Pneumonia COMPARISON: Chest CT without contrast 03/26/2017. TECHNIQUE: Contiguous axial images were obtained through the chest without intravenous contrast enhancement. Sagittal and coronal reconstructions were performed. Radiation dose (DLP): 687.81 mGy-cm. This CT exam was performed using one or more of the following dose reduction techniques: Automated exposure control, adjustment of the mA and/or kV according to patient size, and/or use of iterative reconstruction technique. FINDINGS: LUNGS: Bilateral pleural effusions are appreciated tree, trace on the right and [id number] the left with element of compression atelectasis affects the left lower lobe. Limited fluid is seen in the left major fissure inferiorly as well. Limited loculation of the Meyer portion of this left sided pleural effusion is in question given lobular appearance of the pleural space posterior to the superior segment left lower lobe. Linear atelectasis or fibrosis seen in the left greater than right lung bases. Prior reticular infiltrates appear to have resolved or diminished bilaterally. MEDIASTINUM: There is some dilatation of the descending thoracic aorta proximally. It measures approximate 3.9 cm at the proximal descending segment tapering to 3.0 cm distal to the diaphragmatic hiatus into the abdomen. Lack images contrast limits evaluation of mediastinum however no gross lymphadenopathy is appreciated. The largest lymph node is seen at the lateral margins of the aortopulmonary window and measures 1.0 x 1.5 cm. Normal sized heart. Main pulmonary artery unremarkable. No vascular congestion. No lymphadenopathy. PLEURA: No pleural fluid. No pneumothorax. BONES: No fracture. No destructive lesion. UPPER ABDOMEN: Stomach appears mildly distend retained fluid. OTHER FINDINGS: Stomach appears mildly distend retained fluid. IMPRESSION: Trace right and [id number] left pleural effusions are identify with an element of loculation question at the superior margins of the left effusion. No definite alveolitis although limited fibrotic change or increase in the right base with added linear atelectasis or fibrosis seen at left greater than right lung bases overall. Prior reticular markings have diminished bilaterally or resolved. Mild dilatation of the proximal segment of the descending thoracic aorta measuring up to 3.9 cm transverse dimension diminishing rapidly to a normal caliber.
[2017-07-10] MEDS: MethylPREDNISolone 40 mg Vial IVP SCH ×2 (15:45→16:16)
--- NOTE | 2017-07-10 16:02 | CP.PCM.PN ---
Subjective - Date & Time of Evaluation Date of Evaluation: 07/10/17 Time of Evaluation: 11:00 - Subjective Subjective: F/U HCAP Pt awake, no A/D, occasional dry cough Objective - Vital Signs/Intake and Output Vital Signs (last 24 hours): Temp Pulse Resp BP Pulse Ox 99.0 F 90 20 137/67 95 07/10/17 08:07 07/10/17 09:14 07/10/17 08:07 07/10/17 09:14 07/10/17 08:07 - Medications Medications: Current Medications Acetaminophen (Tylenol 325mg Tab) 650 mg PO Q4 PRN PRN Reason: Fever >100.4 F Last Admin: 07/08/17 08:58 Dose: 650 mg Albuterol/Ipratropium (Duoneb 3 Mg/0.5 Mg (3 Ml) Ud) 3 ml INH RQ4 [facility] Last Admin: 07/10/17 11:22 Dose: 3 ml Albuterol/Ipratropium (Duoneb 3 Mg/0.5 Mg (3 Ml) Ud) 3 ml INH Q4 PRN PRN Reason: Shortness of Breath Amlodipine Besylate (Norvasc) 10 mg PO DAILY [facility] Last Admin: 07/10/17 09:13 Dose: 10 mg Atorvastatin Calcium (Lipitor) 80 mg PO HS [facility] Last Admin: 07/09/17 21:55 Dose: 80 mg Bisacodyl (Dulcolax) 10 mg [place] DAILY PRN PRN Reason: Constipation Calcium/Vitamin D (Oyster Shell Calcium/Vitamin D 500 Mg-200 Iu) 1 tab PO BID [facility] Last Admin: 07/10/17 09:13 Dose: 1 tab Carbidopa/Levodopa (Sinemet Cr) 1 tab PO Q8 [facility] Last Admin: 07/10/17 09:14 Dose: 1 tab Dextrose (Dextrose 50% Inj) 0 ml IV STAT PRN; Protocol PRN Reason: Hypoglycemia Protocol Dextrose (Glutose 15) 0 gm PO ONCE PRN; Protocol PRN Reason: Hypoglycemia Protocol Donepezil HCl (Aricept) 5 mg PO DAILY [facility] Last Admin: 07/10/17 09:09 Dose: 5 mg Famotidine (Pepcid) 20 mg PO BID [facility] Last Admin: 07/10/17 09:13 Dose: 20 mg Furosemide (Lasix) 40 mg PO DAILY [facility] Last Admin: 07/10/17 09:12 Dose: 40 mg Glucagon (Glucagen Diagnostic Kit) 0 mg IM STAT PRN; Protocol PRN Reason: Hypoglycemia Protocol Guaifenesin (Mucinex La) 600 mg PO BID [facility] Last Admin: 07/10/17 09:12 Dose: 600 mg Vancomycin HCl 1 gm/ Sodium (Chloride) 250 mls @ 166.667 mls/hr IVPB Q12 [facility] PRN Reason: Protocol Last Admin: 07/10/17 09:17 Dose: 166.667 mls/hr Piperacillin Sod/Tazobactam (Sod 3.375 gm/ Sodium Chloride) 100 mls @ 100 mls/ hr IVPB Q6 [facility] PRN Reason: Protocol Last Admin: 07/10/17 11:09 Dose: 100 mls/hr Azithromycin 500 mg/ Sodium (Chloride) 250 mls @ 250 mls/hr IVPB DAILY [facility] PRN Reason: Protocol Stop: 07/13/17 23:59 Last Admin: 07/10/17 09:18 Dose: 250 mls/hr Insulin Detemir (Levemir) 10 units SC [facility] Last Admin: 07/09/17 21:54 Dose: 10 u Insulin Detemir (Levemir) 30 units SC DAILY [facility] Last Admin: 07/10/17 11:08 Dose: Not Given Insulin Human Lispro (Humalog) 0 units SC ACHS [facility] PRN Reason: Protocol Last Admin: 07/10/17 13:03 Dose: 3 units Insulin Human Lispro (Humalog) 3 units SC AC [facility] Last Admin: 07/10/17 13:03 Dose: 3 units Levetiracetam (Keppra) 500 mg PO BID [facility] Last Admin: 07/10/17 09:11 Dose: 500 mg Lisinopril (Zestril) 10 mg PO DAILY [facility] Last Admin: 07/10/17 09:14 Dose: 10 mg Magnesium Hydroxide (Milk Of Magnesia) 30 ml PO PRN PRN PRN Reason: Constipation Methylprednisolone (Solu-Medrol) 40 mg IVP Q8 [facility] Last Admin: 07/10/17 15:45 Dose: 40 mg Potassium Chloride (Potassium Chloride Oral Soln) 10 meq PO DAILY [facility] Last Admin: 07/10/17 09:13 Dose: 10 meq Potassium Phos/Sodium Phos (Neutra-Phos) 1 pkt PO DAILY [facility] Promethazine HCl (Phenergan Syrup) 12.5 mg PO Q4 PRN PRN Reason: Cough Last Admin: 07/08/17 00:22 Dose: 12.5 mg - Labs Labs: 07/09/17 10:38 07/09/17 10:38 PT 11.5 Seconds (9.8-13.1) 07/06/17 22:20 INR 1.0 (0.9-1.2) 07/06/17 22:20 APTT 29.5 Seconds (25.6-37.1) 07/06/17 22:20 - Constitutional Appears: Chronically Ill - Head Exam Head Exam: NORMAL INSPECTION - Eye Exam Eye Exam: PERRL - ENT Exam ENT Exam: Normal Exam - Neck Exam Neck Exam: Normal Inspection - Respiratory Exam Respiratory Exam: Decreased Breath Sounds (at bases), Wheezes (scattered) - Cardiovascular Exam Cardiovascular Exam: REGULAR RHYTHM - GI/Abdominal Exam GI & Abdominal Exam: Soft, Normal Bowel Sounds - Extremities Exam Additional comments: Pedal swelling - Back Exam Back Exam: NORMAL INSPECTION - Neurological Exam Neurological Exam: Awake Additional comments: Confused, no following commands, generalized weakness, mild R hemiparesia. - Psychiatric Exam Additional comments: Confused - Skin Skin Exam: Warm Assessment and Plan (1) HCAP (healthcare-associated pneumonia) Status: Acute (2) COPD exacerbation Status: Acute (3) Dementia Status: Acute (4) History of CVA (cerebrovascular accident) Status: Acute (5) Parkinson disease Status: Acute (6) Seizure Status: Acute (7) DM (diabetes mellitus), type 2, uncontrolled Status: Acute (8) HTN (hypertension) Status: Acute - Assessment and Plan (Free Text) Plan: Continue Zithromax, Zosyn Vanco and rest of Tx.
[2017-07-10] MEDS: Potassium & Sodium Phosphate PO SCH (16:15)
[2017-07-11] MEDS: Albuterol-Ipratrop 3 mg / 0.5 (3 ml) UD INH SCH ×5 (00:11→16:01)
[2017-07-11] MEDS: Carbidopa/Levodopa 25/100 CR PO SCH ×4 (00:45→16:04)
[2017-07-11] MEDS: MethylPREDNISolone 40 mg Vial IVP SCH ×2 (00:50→08:59)
[2017-07-11] MEDS: Piperacillin/Tazobact 3.375 GM in Sodium Chloride 0.9% 100 ML IVPB SCH ×2 (03:11→09:01)
[2017-07-11 03:35] LABS: LEVETIRACETAM 9.3 mcg/mL
[2017-07-11 06:28] LABS: ALB/GLOB RATIO 1.1 (1.0-2.1); ALBUMIN 3.2 g/dL (3.5-5.0); ALT/SGPT 49 U/L (21-72); AST/SGOT 25 U/L (17-59); BLOOD UREA NITROGEN 15 mg/dl (9-20); CALCIUM 8.5 mg/dL (8.4-10.2); GFR AFRICAN-AMERICAN > 60; GFR NON-AFRICAN AMERICAN > 60
[2017-07-11 06:31] LABS: BASO % 0.1 % (0.0-2.0); HEMOGLOBIN 13.7 g/dL (12.0-18.0); LYMPH % 10.3 % (20.0-40.0); MEAN CELL VOLUME 90.4 fl (80.0-94.0); MEAN CORPUSCULAR HEMOGLOBIN 30.1 pg (27.0-31.0); MEAN CORPUSCULAR HGB CONC 33.3 g/dL (33.0-37.0); MEAN PLATELET VOLUME 8.7 fl (7.2-11.7); MONO # 0.2 K/uL (0.0-0.8); MONO % 2.1 % (0.0-10.0); NEUT # 8.2 K/uL (1.8-7.0); NEUT % 87.5 % (50.0-75.0); NRBC % 0.1 % (0.0-0.0); RBC 4.56 Mil/uL (4.40-5.90); RED CELL DISTRIBUTION WIDTH 13.4 % (11.5-14.5); WHITE BLOOD COUNT 9.3 K/uL (4.8-10.8)
[2017-07-11 08:00] VITALS: RESP 20
[2017-07-11] MEDS: Insulin Lispro (humaLOG) 100 Units/ml Inj SC SCH ×6 (08:53→16:10)
[2017-07-11] MEDS: levETIRAcetam 100 mg/ml (5ml) Oral Syringe PO SCH ×2 (08:54→16:10)
[2017-07-11] MEDS: Insulin Detemir 100 Units/ml Inj SC SCH (08:55)
[2017-07-11] MEDS: guaiFENesin 600 mg ER Tab PO SCH ×2 (08:56→16:04)
[2017-07-11] MEDS: Potassium & Sodium Phosphate PO SCH (08:57)
[2017-07-11] MEDS: Calcium-Vit D 500 mg-200 Units Tab UD PO SCH ×2 (08:58→16:03)
[2017-07-11] MEDS: Potassium Chloride 20 mEq/15 ml LIQ UD PO SCH (08:59)
[2017-07-11] MEDS: Azithromycin 500 MG in Sodium Chloride 0.9% 250 ML IVPB SCH (10:32)
--- NOTE | 2017-07-11 15:09 | CP.PCM.PN ---
Subjective - Date & Time of Evaluation Date of Evaluation: 07/11/17 Time of Evaluation: 13:20 - Subjective Subjective: F/U HCAP. Pt awake, no A/D, cough on and off. Objective - Vital Signs/Intake and Output Vital Signs (last 24 hours): Temp Pulse Resp BP Pulse Ox 98.1 F 98 H 20 129/58 L 95 07/11/17 07:59 07/11/17 09:13 07/11/17 07:59 07/11/17 09:13 07/11/17 07:59 - Medications Medications: Current Medications Acetaminophen (Tylenol 325mg Tab) 650 mg PO Q4 PRN PRN Reason: Fever >100.4 F Last Admin: 07/08/17 08:58 Dose: 650 mg Albuterol/Ipratropium (Duoneb 3 Mg/0.5 Mg (3 Ml) Ud) 3 ml INH RQ4 [facility] Last Admin: 07/11/17 11:27 Dose: 3 ml Albuterol/Ipratropium (Duoneb 3 Mg/0.5 Mg (3 Ml) Ud) 3 ml INH Q4 PRN PRN Reason: Shortness of Breath Amlodipine Besylate (Norvasc) 10 mg PO DAILY [facility] Last Admin: 07/11/17 08:57 Dose: 10 mg Atorvastatin Calcium (Lipitor) 80 mg PO HS [facility] Last Admin: 07/10/17 21:42 Dose: 80 mg Bisacodyl (Dulcolax) 10 mg [place] DAILY PRN PRN Reason: Constipation Calcium/Vitamin D (Oyster Shell Calcium/Vitamin D 500 Mg-200 Iu) 1 tab PO BID [facility] Last Admin: 07/11/17 08:58 Dose: 1 tab Carbidopa/Levodopa (Sinemet Cr) 1 tab PO Q8 [facility] Last Admin: 07/11/17 08:59 Dose: 1 tab Dextrose (Dextrose 50% Inj) 0 ml IV STAT PRN; Protocol PRN Reason: Hypoglycemia Protocol Dextrose (Glutose 15) 0 gm PO ONCE PRN; Protocol PRN Reason: Hypoglycemia Protocol Donepezil HCl (Aricept) 5 mg PO DAILY [facility] Last Admin: 07/11/17 08:52 Dose: 5 mg Famotidine (Pepcid) 20 mg PO BID [facility] Last Admin: 07/11/17 08:59 Dose: 20 mg Furosemide (Lasix) 40 mg PO DAILY [facility] Last Admin: 07/11/17 08:54 Dose: 40 mg Glucagon (Glucagen Diagnostic Kit) 0 mg IM STAT PRN; Protocol PRN Reason: Hypoglycemia Protocol Guaifenesin (Mucinex La) 600 mg PO BID [facility] Last Admin: 07/11/17 08:56 Dose: 600 mg Vancomycin HCl 1 gm/ Sodium (Chloride) 250 mls @ 166.667 mls/hr IVPB Q12 [facility] PRN Reason: Protocol Last Admin: 07/11/17 09:01 Dose: 166.667 mls/hr Piperacillin Sod/Tazobactam (Sod 3.375 gm/ Sodium Chloride) 100 mls @ 100 mls/ hr IVPB Q6 [facility] PRN Reason: Protocol Last Admin: 07/11/17 09:01 Dose: 100 mls/hr Azithromycin 500 mg/ Sodium (Chloride) 250 mls @ 250 mls/hr IVPB DAILY [facility] PRN Reason: Protocol Stop: 07/13/17 23:59 Last Admin: 07/11/17 10:32 Dose: 250 mls/hr Insulin Detemir (Levemir) 10 units SC HS [facility] Last Admin: 07/10/17 21:43 Dose: 10 u Insulin Detemir (Levemir) 30 units SC DAILY [facility] Last Admin: 07/11/17 08:55 Dose: 30 units Insulin Human Lispro (Humalog) 0 units SC ACHS [facility] PRN Reason: Protocol Last Admin: 07/11/17 11:30 Dose: 8 units Insulin Human Lispro (Humalog) 3 units SC AC [facility] Last Admin: 07/11/17 11:31 Dose: 3 units Levetiracetam (Keppra) 500 mg PO BID [facility] Last Admin: 07/11/17 08:54 Dose: 500 mg Lisinopril (Zestril) 10 mg PO DAILY [facility] Last Admin: 07/11/17 09:13 Dose: 10 mg Magnesium Hydroxide (Milk Of Magnesia) 30 ml PO PRN PRN PRN Reason: Constipation Methylprednisolone (Solu-Medrol) 40 mg IVP Q8 [facility] Last Admin: 07/11/17 08:59 Dose: 40 mg Potassium Chloride (Potassium Chloride Oral Soln) 10 meq PO DAILY [facility] Last Admin: 07/11/17 08:59 Dose: 10 meq Potassium Phos/Sodium Phos (Neutra-Phos) 1 pkt PO DAILY [facility] Last Admin: 07/11/17 08:57 Dose: 1 pkt Promethazine HCl (Phenergan Syrup) 12.5 mg PO Q4 PRN PRN Reason: Cough Last Admin: 07/08/17 00:22 Dose: 12.5 mg - Labs Labs: 07/11/17 05:40 07/11/17 05:40 PT 11.5 Seconds (9.8-13.1) 07/06/17 22:20 INR 1.0 (0.9-1.2) 07/06/17 22:20 APTT 29.5 Seconds (25.6-37.1) 07/06/17 22:20 - Constitutional Appears: No Acute Distress - Head Exam Head Exam: NORMAL INSPECTION - Eye Exam Eye Exam: PERRL - ENT Exam ENT Exam: Normal Exam - Neck Exam Neck Exam: Normal Inspection - Respiratory Exam Respiratory Exam: Decreased Breath Sounds (at bases), Wheezes (scattered) - Cardiovascular Exam Cardiovascular Exam: REGULAR RHYTHM - GI/Abdominal Exam GI & Abdominal Exam: Soft, Normal Bowel Sounds - Extremities Exam Additional comments: Pedal swelling - Back Exam Back Exam: NORMAL INSPECTION - Neurological Exam Neurological Exam: Awake Additional comments: Confused, no following commands, generalized weakness, mild R hemiparesia. - Psychiatric Exam Additional comments: Confused - Skin Skin Exam: Warm Assessment and Plan (1) HCAP (healthcare-associated pneumonia) Status: Acute (2) COPD exacerbation Status: Acute (3) Dementia Status: Acute (4) History of CVA (cerebrovascular accident) Status: Acute (5) Parkinson disease Status: Acute (6) Seizure Status: Acute (7) DM (diabetes mellitus), type 2, uncontrolled Status: Acute (8) HTN (hypertension) Status: Acute - Assessment and Plan (Free Text) Plan: Continue IV abx and rest of Tx.
[2017-07-11 16:08] VITALS: BP 161/73; PULSE 79; TEMP 97.3; O2SAT 97
--- NOTE | 2017-07-13 10:54 | CP.PCM.DIS ---
Provider - Provider Date of Admission: 07/06/17 23:22 Attending physician: Jordan Kruse MD Time Spent in preparation of Discharge (in minutes): 25 Diagnosis - Discharge Diagnosis (1) HCAP (healthcare-associated pneumonia) Status: Acute (2) COPD exacerbation Status: Acute (3) Dementia Status: Acute (4) History of CVA (cerebrovascular accident) Status: Acute (5) Parkinson disease Status: Acute (6) Seizure Status: Acute (7) DM (diabetes mellitus), type 2, uncontrolled Status: Acute Priority: High (8) HTN (hypertension) Status: Acute Hospital Course - Lab Results Lab Results: Micro Results 07/06/17 22:15 Blood-Venous Blood Culture - Final NO GROWTH AFTER 5 DAYS 07/06/17 22:15 Blood-Venous Gram Stain - Final TEST NOT PERFORMED 07/06/17 22:00 Blood-Venous Blood Culture - Final NO GROWTH AFTER 5 DAYS 07/06/17 22:00 Blood-Venous Gram Stain - Final TEST NOT PERFORMED 07/06/17 15:18 Urine,Catheterized Urine Culture - Final No Growth (<1,000 CFU/ML) Most Recent Lab Values WBC 9.3 K/uL (4.8-10.8) 07/11/17 05:40 RBC 4.56 Mil/uL (4.40-5.90) 07/11/17 05:40 Hgb 13.7 g/dL (12.0-18.0) 07/11/17 05:40 Hct 41.2 % (35.0-51.0) 07/11/17 05:40 MCV 90.4 fl (80.0-94.0) 07/11/17 05:40 MCH 30.1 pg (27.0-31.0) 07/11/17 05:40 MCHC 33.3 g/dL (33.0-37.0) 07/11/17 05:40 RDW 13.4 % (11.5-14.5) 07/11/17 05:40 Plt Count 178 K/uL (130-400) 07/11/17 05:40 MPV 8.7 fl (7.2-11.7) 07/11/17 05:40 Neut % (Auto) 87.5 % (50.0-75.0) H 07/11/17 05:40 Lymph % (Auto) 10.3 % (20.0-40.0) L 07/11/17 05:40 [place] % (Auto) 2.1 % (0.0-10.0) 07/11/17 05:40 Eos % (Auto) 0.0 % (0.0-4.0) 07/11/17 05:40 Baso % (Auto) 0.1 % (0.0-2.0) 07/11/17 05:40 Neut # 8.2 K/uL (1.8-7.0) H 07/11/17 05:40 Lymph # 1.0 K/uL (1.0-4.3) 07/11/17 05:40 [place] # 0.2 K/uL (0.0-0.8) 07/11/17 05:40 Eos # 0.0 K/uL (0.0-0.7) 07/11/17 05:40 Baso # 0.0 K/uL (0.0-0.2) 07/11/17 05:40 PT 11.5 Seconds (9.8-13.1) 07/06/17 22:20 INR 1.0 (0.9-1.2) 07/06/17 22:20 APTT 29.5 Seconds (25.6-37.1) 07/06/17 22:20 pO2 54 mm/Hg (30-55) 07/06/17 22:40 VBG pH 7.35 (7.32-7.43) 07/06/17 22:40 VBG pCO2 48 mmHg (40-60) 07/06/17 22:40 VBG HCO3 24.9 mmol/L 07/06/17 22:40 VBG Total CO2 28.0 mmol/L (22-28) 07/06/17 22:40 VBG O2 Sat (Calc) 93.2 % (40-65) H 07/06/17 22:40 VBG Base Excess 0.3 mmol/L (0.0-2.0) 07/06/17 22:40 VBG Potassium 4.0 mmol/L (3.6-5.2) 07/06/17 22:40 Sodium 137.0 mmol/L (132-148) 07/06/17 22:40 Chloride 107.0 mmol/L (98-107) 07/06/17 22:40 Glucose 173 mg/dL (75-110) H 07/06/17 22:40 Lactate 1.8 mmol/L (0.7-2.1) 07/06/17 22:40 FiO2 21.0 % 07/06/17 22:40 Sodium 141 mmol/l (132-148) 07/11/17 05:40 Potassium 4.4 MMOL/L (3.6-5.0) 07/11/17 05:40 Chloride 103 mmol/L (98-107) 07/11/17 05:40 Carbon Dioxide 26 mmol/L (22-30) 07/11/17 05:40 Anion Gap 16 (10-20) 07/11/17 05:40 BUN 15 mg/dl (9-20) 07/11/17 05:40 Creatinine 0.8 mg/dl (0.8-1.5) 07/11/17 05:40 Est GFR ( Amer) > 60 07/11/17 05:40 Est GFR (Non-Af Amer) > 60 07/11/17 05:40 POC Glucose (mg/dL) 331 mg/dL (65-110) H 07/11/17 15:37 Random Glucose 323 mg/dL (75-110) H 07/11/17 05:40 Calcium 8.5 mg/dL (8.4-10.2) 07/11/17 05:40 Phosphorus 2.4 mg/dl (2.5-4.5) L 07/09/17 10:38 Magnesium 2.0 MG/DL (1.6-2.3) 07/09/17 10:38 Total Bilirubin 0.5 mg/dl (0.2-1.3) 07/11/17 05:40 AST 25 U/L (17-59) 07/11/17 05:40 ALT 49 U/L (21-72) 07/11/17 05:40 Alkaline Phosphatase 118 U/L (38-126) 07/11/17 05:40 Troponin I 0.0220 ng/mL (0.00-0.120) 07/06/17 22:20 C-React Prot High Sens > 15.00 mg/L (1.00-3.00) H 07/07/17 08:03 Total Protein 6.2 G/DL (6.3-8.2) L 07/11/17 05:40 Albumin 3.2 g/dL (3.5-5.0) L 07/11/17 05:40 Globulin 3.0 gm/dL (2.2-3.9) 07/11/17 05:40 Albumin/Globulin Ratio 1.1 (1.0-2.1) 07/11/17 05:40 Triglycerides 62 mg/DL (0-149) D 07/07/17 08:03 Cholesterol 66 mg/dL (0-199) 07/07/17 08:03 LDL Cholesterol Direct < 30 mg/dL (0-129) 07/07/17 08:03 HDL Cholesterol 19 MG/DL (30-70) L 07/07/17 08:03 Lipase 50 U/L (23-300) 07/06/17 22:20 Thyroxine (T4) 7.82 ug/dl (5.5-11.0) 07/07/17 08:03 TSH 3rd Generation 2.07 mIU/ML (0.46-4.68) 07/07/17 08:03 Venous Blood Potassium 4.0 mmol/L (3.6-5.2) 07/06/17 22:40 Urine Color Yellow (YELLOW) 07/06/17 22:58 Urine Clarity Clear (Clear) 07/06/17 22:58 Urine pH 5.0 (5.0-8.0) 07/06/17 22:58 Ur Specific [place] 1.023 (1.003-1.030) 07/06/17 22:58 Urine Protein 30 mg/dL (NEGATIVE) 07/06/17 22:58 Urine Glucose (UA) 50 mg/dL (Normal) 07/06/17 22:58 Urine Ketones Negative mg/dL (NEGATIVE) 07/06/17 22:58 Urine Blood Small (NEGATIVE) 07/06/17 22:58 Urine Nitrate Negative (NEGATIVE) 07/06/17 22:58 Urine Bilirubin Negative (NEGATIVE) 07/06/17 22:58 Urine Urobilinogen 4.0 mg/dL (0.2-1.0) 07/06/17 22:58 Ur Leukocyte Esterase Neg Robert/uL (Negative) 07/06/17 22:58 Urine RBC (Auto) 7 /hpf (0-3) H 07/06/17 22:58 Urine Microscopic WBC < 1 /hpf (0-5) 07/06/17 22:58 Levetiracetam 9.3 mcg/mL 07/07/17 08:03 Cold Agglutinins Negative (NEGATIVE) 07/07/17 17:04 Influenza Typ A,B (EIA) Negative for flu a/b (NEGATIVE) 07/06/17 22:58 Ur L.pneumophila Ag Negative (NEGATIVE) 07/08/17 16:00 Mycoplasma pneumon IgG 1.63 (<=0.90) H 07/07/17 17:04 Mycoplasma pneumon IgM 260 U/mL (<770) 07/07/17 17:04 Blood Type O POSITIVE 07/06/17 22:14 Antibody Screen Negative 07/06/17 22:14 BBK History Checked Patient has bt 07/06/17 22:14 - Hospital Course Hospital Course: 87 yrs old male [place] resident with cough , fever, Pt was seen ER [facility] CXR LLL infiltrate , Pt AD , poor historian. Hx Dementia , CVA , Parkinson's , Seizure , Dysphagia , HCL , HTN , Asthma , PNA , DM II , Hx Falls , unsteady gait , urinary incontinence. Surgical Hx neg . Lungs decreased BS at bases, scattered ronchi , confused , generalized weakness, mild R side hemiparesia. CT Chest B/L effusions , chronic changes, Patient treated with ATB , Duo Neb with improvement. DD - no AD , no cough , Lungs BS decreased at bases. DD NH improved and stable condition. - Date & Time of H&P Date of H&P: 07/07/17 Time of H&P: 13:20 Discharge Exam - Head Exam Head Exam: NORMAL INSPECTION Discharge Plan - Discharge Medications Prescriptions: Methylprednisolone [Medrol Dose Pack (21 tabs)] 4 mg PO DAILY #21 mg Azithromycin [Zithromax] 500 mg PO DAILY #3 tab - Follow Up Plan Condition: FAIR Disposition: TRANSF TO SNF Instructions: Pneumonia (DC) Referrals: Jordan Kruse MD [Staff Provider] -
== END 2017-07-11 17:00 | DRG 190 ==
LOC: H.ER 21:32 → H.ERHOLD 23:22 → H.MEDSURG1 07-07 02:00
PROVIDERS: ADMIT Internal Medicine Pulmonary Disease; ATTEND Internal Medicine Pulmonary Disease
PROC: 3E0234Z Introduction of Serum, Toxoid and Vaccine into Muscle, Percutaneous Approach (ICD-10-PCS; principal; 2017-07-07)
DX: J44.0 Chronic obstructive pulmonary disease with (acute) lower respiratory infection (principal); J18.9 Pneumonia, unspecified organism; E11.65 Type 2 diabetes mellitus with hyperglycemia; G20 Parkinson's disease; J44.1 Chronic obstructive pulmonary disease with (acute) exacerbation; Y95 Nosocomial condition; J45.909 Unspecified asthma, uncomplicated; Z86.73 Personal history of transient ischemic attack (TIA), and cerebral infarction without residual deficits; F03.90 Unspecified dementia, unspecified severity, without behavioral disturbance, psychotic disturbance, mood disturbance, and anxiety; E78.00 Pure hypercholesterolemia, unspecified; I10 Essential (primary) hypertension; I25.10 Atherosclerotic heart disease of native coronary artery without angina pectoris; M81.0 Age-related osteoporosis without current pathological fracture; G40.909 Epilepsy, unspecified, not intractable, without status epilepticus; Z23 Encounter for immunization; Z88.6 Allergy status to analgesic agent; Z91.013 Allergy to seafood